=== PATIENT | female | born 1985 | race Caucasian/White ===

== ENCOUNTER 2023-08-10 07:08 | Outpatient (CLI) | payer BC, SELFPAY | END 2023-08-10 07:09 | disposition home or self-care (01) | LOC: NFLDREF 08-11 06:06 | PROVIDERS: Visit Provider Physician Assistant Medical | DX: N39.0 Urinary tract infection, site not specified (principal); B37.2 Candidiasis of skin and nail | CPT/HCPCS: 87086 ==